=== PATIENT | female | born 1940 | race Caucasian/White ===

== ENCOUNTER → 2016-09-29 | Outpatient (CLI) | payer MEDICARE, OTHER ==
[~2016-09-29] MED LIST: ALBU8.5H2 INH; ALPR.5T PO; AZIT250T PO; BISM262O27 PO; BUPR300T51 PO; CNC1KV IM; FLAX340P PO; FLX20C PO; HCT25T PO; LSNP10T PO; LVT.05T PO; OMEP20CA12 PO
--- NOTE | 2016-09-29 10:14 | Diagnostic Imaging Report ---
Indication: Left renal lesion noted on MRI, hypertension. Comparison: No previous ultrasound. Lumbar spine MRI 09/15/2016. Discussion: The kidneys appear normal in echotexture and size bilaterally without evidence of hydronephrosis. Simple appearing anechoic cyst within the inferior left kidney measures 2.8 cm and correlates with cystic lesion noted on MRI. Within the mid left kidney, there is a 1.4 cm anechoic cyst which also likely correlates with the lesion noted on MRI. No solid renal mass identified. The right kidney measures 9.8 cm. The left kidney measures 9.5 cm. The urinary bladder is completely decompressed. Impression: 1. Benign-appearing cystic changes of the left kidney as described. No solid renal mass identified. Dictated by: Dictated on workstation # [id number]
== END ==
LOC: RAD 09:12
PROVIDERS: ATTEND Nurse Practitioner Family
DX: N28.9 Disorder of kidney and ureter, unspecified (principal)
CPT/HCPCS: 76770

== ENCOUNTER → 2016-10-14 | Outpatient (CLI) | payer MEDICARE, OTHER ==
[~2016-10-14] MED LIST changes: -ALBU8.5H2 INH; -ALPR.5T PO; -AZIT250T PO; -BISM262O27 PO; -BUPR300T51 PO; -CNC1KV IM; -FLAX340P PO; -FLX20C PO; -HCT25T PO; -LSNP10T PO; -LVT.05T PO; -OMEP20CA12 PO; +methylPREDNISolone 80 MG/ML (DEPO MEDROL) VIAL IM ONE
== END ==
LOC: PMC 10:54
PROVIDERS: ATTEND Family Medicine
DX: M54.16 Radiculopathy, lumbar region (principal)
CPT/HCPCS: 62322; J1040

== ENCOUNTER → 2016-11-26 | Outpatient (REF) | payer MEDICARE, OTHER ==
[2016-11-26 15:24] LABS: BASOPHILS % (AUTO) 0 % (0-2); EOSINOPHILS # (AUTO) 0.1 10^3uL; EOSINOPHILS % (AUTO) 2 % (0-4); LYMPHOCYTES # (AUTO) 0.8 X10^3; MEAN CORPUSCULAR HEMOGLOBIN 29.1 PG (26.0-34.0); MEAN CORPUSCULAR HGB CONC 32.4 g/dL (31.0-37.0); MEAN CORPUSCULAR VOLUME 90 FL (80-100); MEAN PLATELET VOLUME 9.3 FL (6.0-9.5); MONOCYTES # (AUTO) 0.3 X10^3; MONOCYTES % (AUTO) 4 % (3-11); NEUTROPHILS # (AUTO) 6.9 X10^3; NEUTROPHILS % (AUTO) 84 % (51-67); PLATELET COUNT 254 10^3uL (150-450); WHITE BLOOD COUNT 8.17 10^3uL (4.0-11.0)
[2016-11-26 15:40] LABS: BILIRUBIN,URINE Negative (Negative); CLARITY,URINE Clear; COLOR,URINE Yellow; GLUCOSE, URINE (UA) Negative (Negative); LEUKOCYTE ESTERASE, URINE Negative (Negative); PH,URINE 5.5 (5.0 - 8.0); UROBILINOGEN,URINE 0.2 mg/dL (0.2-1.0)
[2016-11-26 16:37] LABS: ALBUMIN 3.9 g/dL (3.4-5.0); ANION GAP 13.8 MEQ/L (3-15); CALCULATED IONIZED CALCIUM 4.4 mg/dL (3.8-4.6); TOTAL PROTEIN 6.4 g/dL (6.4-8.5)
== END ==
LOC: LAB 15:00
PROVIDERS: ATTEND Nurse Practitioner Family
DX: I10 Essential (primary) hypertension (principal); E03.8 Other specified hypothyroidism
CPT/HCPCS: 80053; 80061; 81003; 84443; 85025

== ENCOUNTER → 2017-01-06 | Outpatient (REF) | payer MEDICARE, OTHER ==
[~2017-01-06] MED LIST changes: +ALBU8.5H2 INH; +ALPR.5T PO; +AZIT250T PO; +BISM262O27 PO; +BUPR300T51 PO; +CNC1KV IM; +FLAX340P PO; +FLX20C PO; +HCT25T PO; +LSNP10T PO; +LVT.05T PO; +OMEP20CA12 PO; -methylPREDNISolone 80 MG/ML (DEPO MEDROL) VIAL IM ONE
== END ==
LOC: LAB 09:46
PROVIDERS: ATTEND Nurse Practitioner Family
DX: R73.9 Hyperglycemia, unspecified (principal)
CPT/HCPCS: 83036

== ENCOUNTER → 2017-01-06 | Outpatient (CLI) | payer MEDICARE, OTHER ==
[~2017-01-06] MED LIST changes: +methylPREDNISolone 80 MG/ML (DEPO MEDROL) VIAL IM ONE
--- NOTE | 2017-01-07 08:05 | PAIN MANAGEMENT ---
Date of note: 01/06/2017 Procedure: Lumbar epidural steroid injection with fluoroscopic guidance This is a 76-year-old female patient under the care of Dr. Hany Acharya. Anesthesia was consulted for the purpose of an epidural steroid injection secondary to acute lumbar radiculopathy. The patient has been seen by our services at the end of September by Oniel Barksdale where she received an L5-S1 epidural steroid injection for pain following those dermatome levels predominantly in the left leg. The patient states she comes back in today with the same symptoms, however, not as bad. She just wants another injection before they get to the point they were before. Based on presentation and results from previous injection, we decided to proceed forward with a lumbar epidural steroid injection. Informed consent was obtained and the patient was taken to the operating room for the use of fluoroscopic guidance for needle tip placement. The patient was placed in the left lateral decubitus position. Orders for procedure verified. Patient denies any bleeding tendencies. After informed consent obtained, the patient was positioned for the lumbar epidural steroid injection. The area was prepped and draped using aseptic technique. The skin and overlying tissues were localized using 3 mL of 1% Preservative-Free lidocaine using a 25-gauge 1.5-inch needle. A 20-gauge Tuohy needle was advanced, using "loss of resistance" technique, to the epidural space. No blood, cerebral spinal fluid, pain, or paresthesia noted on entry of the epidural space. A 1 mL solution of Depo-Medrol 80 mg was injected slowly without mass volume effect. The needle was then removed and the patient was turned to the sitting position where she remained for approximately 5 or 10 minutes. She was then released with vital signs stable and faculties intact. She is asked to follow up with me via my cellphone in approximately 3 days. The patient states she understands these discharge instructions and I will follow her from there.
== END ==
LOC: PMC 12:55
PROVIDERS: ATTEND Family Medicine
DX: M54.16 Radiculopathy, lumbar region (principal); J43.9 Emphysema, unspecified; J45.909 Unspecified asthma, uncomplicated; I10 Essential (primary) hypertension
CPT/HCPCS: 62323; J1040

== ENCOUNTER → 2017-01-21 | Outpatient (CLI) | payer MEDICARE, OTHER ==
[~2017-01-21] MED LIST changes: -methylPREDNISolone 80 MG/ML (DEPO MEDROL) VIAL IM ONE
--- NOTE | 2017-01-21 12:12 | Diagnostic Imaging Report ---
INDICATION: Wheezing and shortness of breath. Chronic obstructive bronchitis. COMPARISON: 07/13/2015. FINDINGS: The lungs are well-aerated. There are no infiltrates present. The heart is not enlarged. There is no pulmonary edema. No hilar adenopathy. No pneumothorax or pleural effusion. IMPRESSION: No acute changes have occurred when compared with previous exam. Dictated by: Dictated on workstation # [id number]
== END ==
LOC: RAD 11:36
PROVIDERS: ATTEND Nurse Practitioner Family
DX: J44.1 Chronic obstructive pulmonary disease with (acute) exacerbation (principal)
CPT/HCPCS: 71020

== ENCOUNTER → 2017-01-29 | Outpatient (CLI) | payer MEDICARE, OTHER | LOC: RAD 08:40 | PROVIDERS: ATTEND Nurse Practitioner Family | DX: R06.09 Other forms of dyspnea (principal) | CPT/HCPCS: 93306 ==

== ENCOUNTER 2017-02-12 20:38 | Emergency (ER) | payer MEDICARE, OTHER ==
[~2017-02-12] VITALS: Ht 157.5 cm; Wt 102.2 kg
[~2017-02-12 20:38] MED LIST changes: -ASPI-586 PO; -LORA10TA7 PO; -UMEC62.5 IH; -methylPREDNISolone 80 MG/ML (DEPO MEDROL) VIAL IM ONE
[2017-02-12] MEDS ORDERED: UMEC62.5 IH (21:28)
[2017-02-12] MEDS ORDERED: ASPI-586 PO (21:28)
[2017-02-12] MEDS ORDERED: LORA10TA7 PO (21:28)
--- NOTE | 2017-02-12 21:40 | NUR ---
Daughter had informed me titus patient has not taken her thyroid medication for a few days, d/t she can't find it.
[2017-02-12 22:20] VITALS: BP 103/45
== END 2017-02-12 22:25 | disposition home or self-care (01) ==
LOC: ED 20:39
DX: R00.1 Bradycardia, unspecified (principal); R53.83 Other fatigue; T44.7X5A Adverse effect of beta-adrenoreceptor antagonists, initial encounter; Y92.009 Unspecified place in unspecified non-institutional (private) residence as the place of occurrence of the external cause
CPT/HCPCS: 99281; 99284

== ENCOUNTER → 2017-02-12 | Outpatient (CLI) | payer MEDICARE, OTHER ==
[~2017-02-12] MED LIST changes: +ASPI-586 PO; +LORA10TA7 PO; +UMEC62.5 IH; +methylPREDNISolone 80 MG/ML (DEPO MEDROL) VIAL IM ONE
--- NOTE | 2017-02-13 06:37 | PAIN MANAGEMENT ---
Date of note: 02/12/2017 PROCEDURE: Epidural steroid injection L5-S1 under fluoroscopy. TOTAL FLUOROSCOPIC TIME: 28 seconds. This is a 76-year-old patient of Dr. Hany Acharya. The patient presents for the third in a series of epidural steroid injections for spinal stenosis. She mainly complains of low back pain but does have some radicular symptoms in the left leg. Upon initial examination it was noted that her heart rate was running between 43-40 bpm. She has recently been placed Metoprolol according to her and I did explain to her that she may want to contact Dr. Acharya's office when she can to see if they are comfortable with her heart rate at that. I did also leave a message on Dr. Acharya's office system. I was unable to reach anybody in person. She is not symptomatic at this time and I did tell her that if she became symptomatic and we went through what that meant that she should go to the ER and be examined. With that said, informed consent was achieved for an epidural steroid injection under fluoroscopy at L5-S1. She was placed in left lateral decubitus position. Orders for procedure verified. Patient denies any bleeding tendencies. After informed consent obtained, the patient was positioned for the lumbar epidural steroid injection. The area was prepped and draped using aseptic technique. The skin and overlying tissues were localized using 3 mL of 1% Preservative-Free lidocaine using a 25-gauge 1.5-inch needle. A 20-gauge Tuohy needle was advanced, using "loss of resistance" technique, to the epidural space. No blood, cerebral spinal fluid, pain, or paresthesia noted on entry of the epidural space. A 1 mL solution of Depo-Medrol 80 mg was injected slowly without mass volume effect. The patient was placed in supine position 15 minutes prior to being released with proper leg strength and vitals. Pre- and post procedure vital signs stable with no sensory or motor deficit noted. Instruction on followup contact and care provided to the patient.
== END ==
LOC: PMC 15:26
PROVIDERS: ATTEND Family Medicine
PROC: 3E0R33Z Introduction of Anti-inflammatory into Spinal Canal, Percutaneous Approach (ICD-10-PCS; principal; 2017-02-12)
PROC: B01BZZZ Fluoroscopy of Spinal Cord (ICD-10-PCS; 2017-02-12)
DX: M48.06 Spinal stenosis, lumbar region (principal)
CPT/HCPCS: 62323; J1040